=== PATIENT | female | born 1930 | race Caucasian/White ===

== ENCOUNTER 2016-09-13 05:09 | Day surgery (SDC) | payer MEDICARE, OTHER ==
[2016-09-12 10:56] LABS: BASOPHILS 0.5 % (0.0-2.0); EOSINOPHILS 3.5 % (0-7); HEMATOCRIT 40.1 % (36.0-48.0); HEMOGLOBIN 12.3 g/dL (12-16); IMMATURE GRANULOCYTES 0.1 % (0-5); LYMPHOCYTES 14.5 % (15-50); MCH 28.5 pg (26.0-34.0); MCHC 30.7 g/dL (31.0-37.0); MEAN PLATELET VOLUME 9.1 fL (7.4-10.4); MONOCYTES 7.8 % (2-11); NEUTROPHILS 73.6 % (40-80); PLATELET COUNT 250 10x3/uL (130-400); RBC 4.31 10x6/uL (4.00-5.40); RDW 14.1 % (11.5-14.5); WBC 7.6 10x3/uL (4.8-10.8)
[2016-09-12 11:26] LABS: ANION GAP 12.9 mmol/L (8-16); CALCIUM 9.4 mg/dL (8.5-10.1); CARBON DIOXIDE 32.1 mmol/L (21.0-32.0); CREATININE - SERUM 0.8 mg/dL (0.6-1.3)
[~2016-09-13] VITALS: Ht 167.6 cm; Wt 68.0 kg
[~2016-09-13 05:09] MED LIST: CELEXA40 MG PO; COREG6.25 MG PO; DIOVAN320 MG PO; FERROUS SULFAT325 MG PO; HYDRALAZINE HCL25 MG PO; LIPITOR40 MG PO; NEURONTIN 300300 MG PO; NIFEDICAL30 MG/BOTT PO; PRESERVISION AR1 CAP PO; XANAX0.5 MG PO
[2016-09-13 07:26] VITALS: BP 137/59; Ht 167.6 cm; Wt 68.0 kg
--- NOTE | 2016-09-13 10:57 | NUR ---
1050-PT. ESCORTED VIA WHEELCHAIR TO PERSONAL CAR, LEFT WITH FAMILY DRIVING.
--- NOTE | 2016-11-02 10:17 | OP ---
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 PROCEDURE: Esophagogastroduodenoscopy with argon plasma coagulation therapy to areas of vascular ectasias within the stomach. This is a radiofrequency type of ablation of a benign gastric process. SURGEON: Miguel Rey MD STATISTICAL GENETICIST: None. BLOOD LOSS: Minimal. ANESTHESIA: General. COMPLICATIONS: None. The risks, possible complications and alternatives to procedure were explained to the patient. She elects to proceed. OPERATIVE COURSE: The patient was conveyed to the operating room electively on 09/13/2016. General anesthesia was induced by the anesthesia staff. A bite block was inserted. A gastroscope was inserted into the mouth. It was advanced easily into the hypopharynx. The esophagus was easily intubated as were the stomach and duodenum. Upon withdrawal, retroflexed and angulus views were obtained. No antral biopsies were obtained. I ablated all the vascular ectasias that I could identify. There was no further bleeding. There had been some adherent clots in the stomach when I first entered the stomach indicating some recent gastrointestinal hemorrhage. The endoscope was then withdrawn under direct vision. I saw the patient postoperatively. I told her that she may require additional treatments in the future if she has a recurrence of upper gastrointestinal bleeding. She is to start her on a blood thinner in a few days per her truck dispatcher and I have recommended that she hold off for 5 days before starting this blood thinner. TRANSINT:[id number] Voice Confirmation ID: [id number] DOCUMENT ID: [id number] OPERATIVE REPORT [id number] GENE DAVIES ROBERT MD at 1017 CC: SHAE DIALLO MD and MONALISA RODARTE MD [id number] DICTATION DATE: 09/13/16 1015 SALES CORRESPONDENCE CLERK: 09/13/16 1027 [facility] 09/13/16 [id number] [place] [address]
--- NOTE | 2016-11-02 10:17 | HP ---
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 I have personally reviewed the endoscopic photos. I have personally reviewed the endoscopic report. The patient underwent EGD with biopsies on 07/08/2016. There were 3-4 rows of small adherent clots and upon washing and removing the clots, it showed small ectasias consistent with watermelon stomach. The patient is here to undergo argon plasma coagulation therapy to areas of watermelon stomach. The complete history and physical examination is on the chart and is from the office. TRANSINT:[id number] Voice Confirmation ID: [id number] DOCUMENT ID: [id number] MIGUEL REY MD at 1017 CC: SHAE DIALLO MD and MONALISA RODARTE MD [id number] DICTATION DATE: 09/13/16 1012 ASSISTANT FOREMAN: 09/13/16 1034 [facility] 09/13/16 [id number] [place] [address]
== END 2016-09-13 10:50 | disposition home or self-care (01) ==
LOC: D.OPS 05:09 → D.PAN 07:30 → D.OPS 08:30 → D.PAN 08:30 → D.OPS 10:50
PROVIDERS: Anesthesiology
DX: K31.811 Angiodysplasia of stomach and duodenum with bleeding (principal)